=== PATIENT | male | born 1975 | race Caucasian/White ===

== ENCOUNTER 2018-03-17 22:08 | Emergency (ER) | payer OTHER ==
--- NOTE | 2018-03-17 23:52 | ER Document Report ---
HPI - HPI Pain Level: 0 Context: Patient is a 42-year-old male presents emergency department complaining of right hand burn. Patient states that he works at [employer] in the emergency and is increased 3 days ago. Patient states that he was told to come to the ER because his hand looked infected. He denies any fevers, swelling, purulent drainage. States that he has been taking as needed Tylenol Motrin for his pain. Otherwise his been cleaning it with peroxide. Tetanus is up-to-date Past Medical History - Social History Smoking Status: Smoker,Current Status Unk Family History: Reviewed & Not Pertinent Vertical Provider Document - CONSTITUTIONAL Agree With Documented VS: Yes Notes: PHYSICAL EXAM GENERAL: Alert, interacts well. EXTREMITIES: Moves all 4 extremities spontaneously. No edema, radial pulses 2/4 bilaterally. No cyanosis. Capillary refill less than 2 seconds in bilateral upper extremity digits NEUROLOGICAL: Alert and oriented x4. Normal speech. PSYCH: Normal affect, normal mood. SKIN: Warm, dry, normal turgor. Superficial eschar along the radial thenar surface of the hand without underling subq muscle involvement. No surrounding erythema, induration, purulent drainage - INFECTION CONTROL TRAVEL OUTSIDE OF THE [place] IN LAST 30 DAYS: No Course - Re-evaluation Re-evalutation: 03/17/18 23:49 Patient is a 42-year-old male is here today with a stable, no acute distress. Presentation is consistent with a superficial first-degree burn. Educated patient on wound care and given strict return precautions. Patient is agreeable with plan and stable for discharge home. - Vital Signs Vital signs: Temp Pulse Resp BP Pulse Ox 97.2 F 70 19 120/76 98 03/17/18 22:29 03/17/18 22:29 03/17/18 22:29 03/17/18 22:29 03/17/18 22:29 Discharge - Discharge Clinical Impression: Burn Condition: Good Disposition: HOME, SELF-CARE Instructions: Antibiotic Ointment Protection ([facility]), Vargas ([facility]), Soap Cleansing ([facility])
[2018-03-17 23:56] VITALS: BP 124/83
== END 2018-03-18 00:21 | disposition home or self-care (01) ==
LOC: ER 22:08
DX: T23.101A Burn of first degree of right hand, unspecified site, initial encounter (principal); X08.8XXA Exposure to other specified smoke, fire and flames, initial encounter
CPT/HCPCS: 99283